=== PATIENT | female | born 1955 | race Caucasian/White ===

== ENCOUNTER 2018-04-08 07:18 | Day surgery (SDC) | payer OTHER ==
[~2018-04-08] VITALS: Ht 162.6 cm; Wt 118.4 kg
[~2018-04-08 07:18] MED LIST: ALPR.5 PO; Adipex-P37.5 MG PO; CALGLU500; CHLO500 PO; CQ 10; CYAN500; DIAZ5 PO; ESTR1 PO; ESTR2 PO; FISH1000; FISH1000 PO; HYDACE5 PO; HYDCHL12.5; LANS30EC; LANS30EC PO; MELO7.5; MELO7.5 PO; OXYACE5T PO; POLY500; PRED20 PO; SIMV40; TRIHYD253A PO
== END 2018-04-08 22:57 | disposition home or self-care (01) ==
LOC: ORSCMMR 07:18 → ORD 08:30 → ORSCMMR 22:57
PROVIDERS: Internal Medicine Gastroenterology
PROC: 0DBL8ZX Excision of Transverse Colon, Via Natural or Artificial Opening Endoscopic, Diagnostic (ICD-10-PCS; principal; 2018-04-08 08:30)
DX: Z12.11 Encounter for screening for malignant neoplasm of colon (principal); D12.3 Benign neoplasm of transverse colon; K64.8 Other hemorrhoids; K57.30 Diverticulosis of large intestine without perforation or abscess without bleeding; E66.01 Morbid (severe) obesity due to excess calories; Z68.41 Body mass index [BMI] 40.0-44.9, adult; K21.9 Gastro-esophageal reflux disease without esophagitis; Z79.899 Other long term (current) drug therapy; Z87.891 Personal history of nicotine dependence
CPT/HCPCS: 88305; J2250; J3010; J7030

== ENCOUNTER 2018-11-23 21:06 | Emergency (ER) | payer OTHER ==
[~2018-11-23] VITALS: Ht 162.6 cm; Wt 115.7 kg
[2018-11-23 22:13] LABS: BASOPHILS ABSOLUTE AUTO 0.04 K/mm3 (0.00-0.23); BASOPHILS PERCENT AUTO 0 % (0-2); EOSINOPHILS PERCENT AUTO 1 % (0-6); Hematocrit 48.3 % (33.0-51.0); IMMATURE GRAN ABSOLUTE AUTO 0.03 K/mm3 (0.00-0.10); IMMATURE GRAN PERCENT AUTO 0 % (0-1); LYMPHOCYTES PERCENT AUTO 16 % (21-46); MONOCYTES ABSOLUTE AUTO 0.61 K/mm3 (0.16-1.47); MONOCYTES PERCENT AUTO 6 % (4-13); Mean Corpuscular HGB 28.5 pg (26.0-34.0); Mean Corpuscular HGB Conc 33.1 g/dL (31.5-36.5); Mean Corpuscular Volume 86 fL (80-100); Mean Platelet Volume 10.4 fL (9.1-12.4); NEUTROPHILS ABSOLUTE AUTO 7.49 K/mm3 (1.96-9.15); NEUTROPHILS PERCENT AUTO 76 % (41-73); Platelet Count 260 K/mm3 (150-400); RDW Coefficient Variation 12.6 % (11.7-14.2); RDW Standard Deviation 39.7 fL (35.1-46.3); Red Blood Cell Count 5.61 M/mm3 (3.80-5.20); White Blood Cell Count 9.87 K/mm3 (4.00-11.30)
[2018-11-23 22:30] LABS: Alanine Aminotransfer (ALT/SGP 43 U/L (12-78); Albumin, Blood 4.3 g/dL (3.4-5.0); Albumin/Globulin Ratio 1.2 (0.8-1.8); Alk Phos 51 U/L (50-136); Anion Gap 10 mmol/L (6-16); Aspartate Aminotrans (AST/SGOT 34 U/L (12-37); Bilirubin, Total 0.6 mg/dL (0.1-1.0); Blood Urea Nitrogen 9 mg/dL (8-24); CO2, Blood 28 mmol/L (21-32); Calcium, Blood 9.6 mg/dL (8.5-10.1); Chloride, Blood 99 mmol/L (98-108); Globulin, Blood 3.7 g/dL (2.2-4.0); Glomerular Filtration Rate >60 (60-); Glucose, Blood 138 mg/dL (70-99); Potassium, Blood 3.5 mmol/L (3.5-5.5); Sodium, Blood 137 mmol/L (136-145)
[2018-11-23 22:41] LABS: Source, Urine Clean Catch
[2018-11-23 22:44] LABS: Bilirubin, Urine Neg (Neg); Blood, Urine Neg (Neg); Glucose Qualitative, Urine Neg (Neg); Ketones, Urine 3+ (Neg); Leukocyte Esterase, Urine Neg (Neg); Nitrite, Urine Neg (Neg); Protein, Urine 2+ (Neg); Urobilinogen, Urine NORM (Normal)
[2018-11-23 22:49] LABS: Appearance, Urine Clear (Clear); Color, Urine Yellow (P-Yellow)
[2018-11-23 22:50] LABS: Bacteria Few /hpf; Red Blood Cells, Urine 0-2 /hpf (0-2); Squamous Epithelial Cells Rare /hpf (Few); White Blood Cells, Urine 0-2 /hpf (0-5)
[2018-11-23 22:51] LABS: Hyaline Casts 0-2 /lpf (0-2)
[2018-11-24] MEDS ORDERED: Super B-50 Com1 EAC1 PO (00:11)
[2018-11-24] MEDS ORDERED: ALPR.5 PO (00:11)
[2018-11-24] MEDS ORDERED: FISH OIL 1,0001 EAC1 PO (00:11)
[2018-11-24] MEDS ORDERED: D3-20002000 UNIT PO (00:12)
[2018-11-24] MEDS ORDERED: LORATADINE 10 MG (00:13)
== END 2018-11-24 02:05 | disposition home or self-care (01) ==
LOC: ER 21:06
PROVIDERS: Physician Assistant
DX: R10.9 Unspecified abdominal pain (principal); Z88.2 Allergy status to sulfonamides; Z79.899 Other long term (current) drug therapy; Z87.891 Personal history of nicotine dependence
CPT/HCPCS: 36415; 74176; 80053; 81001; 83690; 85025; 93005; 93010; 96374; 96375; 99284-25; J1170; J2405

== ENCOUNTER 2019-12-08 06:18 | Day surgery (SDC) | payer OTHER ==
[~2019-12-08] VITALS: Ht 160 cm; Wt 110.6 kg
[~2019-12-08 06:18] MED LIST changes: +D3-20002000 UNIT PO; +FISH OIL 1,0001 EAC1 PO; +LORATADINE 10 MG; +Super B-50 Com1 EAC1 PO
--- NOTE | 2019-12-08 07:21 | NUR ---
12/08/19 0721 Fabiola Dubon preop teaching done, call light in reach. family at beside.
== END 2019-12-08 10:53 | disposition home or self-care (01) ==
LOC: ORSCSDS 06:18
PROVIDERS: Otolaryngology
PROC: 0GTH0ZZ Resection of Right Thyroid Gland Lobe, Open Approach (ICD-10-PCS; principal; 2019-12-08 07:30)
PROC: 0GBJ0ZZ Excision of Thyroid Gland Isthmus, Open Approach (ICD-10-PCS; principal; 2019-12-08 07:30)
PROC: 0GBG0ZZ Excision of Left Thyroid Gland Lobe, Open Approach (ICD-10-PCS; principal; 2019-12-08 07:30)
DX: E04.1 Nontoxic single thyroid nodule (principal); I10 Essential (primary) hypertension; K21.9 Gastro-esophageal reflux disease without esophagitis; Z87.891 Personal history of nicotine dependence; E66.01 Morbid (severe) obesity due to excess calories; Z68.41 Body mass index [BMI] 40.0-44.9, adult; Z79.899 Other long term (current) drug therapy
CPT/HCPCS: 88307; J1100; J1885; J2250; J2405; J2704; J3010; J7120

== ENCOUNTER → 2020-10-24 | Outpatient (CLI) | payer OTHER | LOC: LAB SHORT 14:19 | DX: R30.9 Painful micturition, unspecified (principal) | CPT/HCPCS: 87077; 87086; 87186 ==

== ENCOUNTER → 2021-08-28 | Outpatient (CLI) | payer OTHER | END | disposition home or self-care (01) | LOC: LAB SHORT 17:59 | DX: R31.0 Gross hematuria (principal) | CPT/HCPCS: 87077; 87086; 87186 ==

== ENCOUNTER → 2021-09-20 | Outpatient (CLI) | payer OTHER ==
[2021-09-20 14:30] LABS: Source, Urine Clean Catch
[2021-09-20 16:08] LABS: Bacteria Not Seen /hpf; Red Blood Cells, Urine Not Seen /hpf (0-2); Squamous Epithelial Cells Few /hpf (Few); White Blood Cells, Urine 0-2 /hpf (0-5)
== END | disposition home or self-care (01) ==
LOC: LAB SHORT 14:26
PROVIDERS: Family Medicine
DX: R30.9 Painful micturition, unspecified (principal)
CPT/HCPCS: 81015; 87077; 87086; 87186

== ENCOUNTER 2022-03-25 08:51 | Day surgery (SDC) | payer OTHER ==
[~2022-03-25] VITALS: Ht 162.6 cm; Wt 111.9 kg
[~2022-03-25 08:51] MED LIST changes: +ATEN50 PO; +ATOR40TA PO; +BUPR150ER PO; +BUSP5 PO; +SYNTHROID50 MC2 PO; +TOPI50 PO
--- NOTE | 2022-03-25 08:59 | NUR ---
History, Chart, Medications and Allergies reviewed before start of procedure. Patient confirms NPO status and agrees with scheduled surgery. Patient States Post-Procedure ride home has been arranged with her , Devang.
--- NOTE | 2022-03-25 09:22 | NUR ---
03/25/22 0922 Merlene Chowdhury History, Chart, Medications and Allergies reviewed before start of procedure. 3-LEAD EKG REVIEWED WITH PHYSICIAN PRIOR TO START OF PROCEDURE. MONITOR INTACT WITH CONTINUOUS PULSE OXIMETRY AND INTERMITTENT BP. O2 VIA N/C INTACT THROUGHOUT SEDATION/PROCEDURE. HISTORY,CHART, MEDICATIONS AND ALLERGIES REVIEWED BEFORE START OF PROCEDURE. PATIENT CONFIRMS NPO STATUS AND AGREES WITH SCHEDULED PROCEDURE. 3-LEAD EKG REVIEWED WITH PHYSICIAN PRIOR TO START OF PROCEDURE. MONITOR INTACT WITH CONTINUOUS PULSE OXIMETRY AND INTERMITTENT BP. SUPPLEMENTAL O2 TO BE TITRATED THROUGHOUT PROCEDURE TO MAINTAIN O2 SATURATION ABOVE 90%. PATIENT DETERMINED TO BE ASA APPROPRIATE FOR MODERATE SEDATION PRIOR TO START OF PROCEDURE BY .
--- NOTE | 2022-03-25 09:24 | NUR ---
REPORTS TAKING ALL OF COLON PREP WITH CEAR RESULTS.
--- NOTE | 2022-03-25 10:53 | NUR ---
Patient up to Ambulate independently. Gait steady. Discharge instructions reviewed with patient. Patient verbalizes understanding. Copy given to patient to take home, [facility]. Patient States Post-Procedure ride home has been arranged. Discharged via wheelchair to private car for ride home.
== END 2022-03-25 10:53 | disposition home or self-care (01) ==
LOC: ORSCMMR 08:51 → ORD 09:30 → ORSCMMR 09:30
PROVIDERS: Internal Medicine Gastroenterology
PROC: 0DB48ZX Excision of Esophagogastric Junction, Via Natural or Artificial Opening Endoscopic, Diagnostic (ICD-10-PCS; principal; 2022-03-25 09:30)
PROC: 0DB78ZX Excision of Stomach, Pylorus, Via Natural or Artificial Opening Endoscopic, Diagnostic (ICD-10-PCS; principal; 2022-03-25 09:30)
PROC: 0DB58ZX Excision of Esophagus, Via Natural or Artificial Opening Endoscopic, Diagnostic (ICD-10-PCS; principal; 2022-03-25 09:30)
PROC: 0DBN8ZX Excision of Sigmoid Colon, Via Natural or Artificial Opening Endoscopic, Diagnostic (ICD-10-PCS; principal; 2022-03-25 09:30)
PROC: 0DBM8ZX Excision of Descending Colon, Via Natural or Artificial Opening Endoscopic, Diagnostic (ICD-10-PCS; principal; 2022-03-25 09:30)
DX: K21.9 Gastro-esophageal reflux disease without esophagitis (principal); Z12.11 Encounter for screening for malignant neoplasm of colon; Z86.010 Personal history of colon polyps; E66.01 Morbid (severe) obesity due to excess calories; Z68.41 Body mass index [BMI] 40.0-44.9, adult; G47.33 Obstructive sleep apnea (adult) (pediatric); F41.8 Other specified anxiety disorders; I10 Essential (primary) hypertension; E78.00 Pure hypercholesterolemia, unspecified; Z79.899 Other long term (current) drug therapy; D12.4 Benign neoplasm of descending colon; D12.5 Benign neoplasm of sigmoid colon; K57.30 Diverticulosis of large intestine without perforation or abscess without bleeding
CPT/HCPCS: 88305; 88342; A9270; J2250; J3010; J7120

== ENCOUNTER → 2025-01-17 | Outpatient (CLI) | payer OTHER ==
[2025-01-17 12:48] LABS: Microalb/Creat Ratio UR, Rand 18.922 mg/g (0.000-30.000); Microalbumin, Random Urine 31.6 mg/L (0.000-20.000)
== END | disposition home or self-care (01) ==
LOC: LAB 09:00 → LAB SHORT 09:00
PROVIDERS: Family Medicine
DX: E11.51 Type 2 diabetes mellitus with diabetic peripheral angiopathy without gangrene (principal); E11.59 Type 2 diabetes mellitus with other circulatory complications; E11.69 Type 2 diabetes mellitus with other specified complication
CPT/HCPCS: 82043; 82570